=== PATIENT | male | born 1965 | race Caucasian/White ===

== ENCOUNTER 2022-08-06 15:26 | Emergency (ER) | payer OTHER, SELFPAY ==
[2022-08-06] VITALS (11 sets, daily range): BP systolic 119–141; BP diastolic 82–96; PULSE 91–115; RESP 20; TEMP 35.1; O2SAT 95–98; BMI 39.7
--- NOTE | 2022-08-06 16:00 | CRLHL7_ITS ---
For Patients: As a result of the Cures Act, medical imaging exams and procedure reports are released immediately into your electronic medical record. You may view this report before your referring provider. If you have questions, please contact your health care provider. INDICATION: Short of breath. TECHNIQUE: Chest 2 views. COMPARISON: None. FINDINGS: Lungs: Diffuse interstitial prominence. No focal consolidation. Pleura: Small bilateral pleural effusions. Heart and Mediastinum: The cardiomediastinal silhouette is normal. The vessels are unremarkable. Bones: Unremarkable. IMPRESSION: Interstitial prominence could be venous congestion. Dictated by Hung Milan MD @ 08/06/2022 5:22:35 PM (Electronically Signed)
--- NOTE | 2022-08-06 16:05 | ED_ITS ---
HPI - SOB/Dyspnea General Chief Complaint: Shortness of Breath/Dyspnea Stated Complaint: Shortness of breath Time Seen by Provider: 08/06/22 15:51 History of Present Illness HPI Narrative: This 57-year-old male comes in from clinic where he reported shortness of breath over the past couple months. He states that it has been getting worse over the course of this time. He had now has difficulty sleeping at night as he says that laying flat makes his dyspnea worse. He also reports significant shortness of breath with and doing activities such as going up a couple flights of stairs. He does not report any chest pain. He has not had fevers or cough. He quit smoking about 25 years ago. He is not taking any medications and is otherwise in good health. He denies having any unilateral limb pain or swelling. He arrives with tachycardia with a heart rate at 115. His respiratory rate is 20 and oximetry at 96% on room air. Related Data Previous Rx's Medication Instructions Recorded furosemide 20 mg tablet (Lasix) 20 mg PO DAILY #20 tabs 08/06/22 furosemide 40 mg tablet 40 mg PO BID #60 tabs 08/06/22 Allergies Allergy/AdvReac Type Severity Reaction Status Date / Time amoxicillin Allergy Mild Rash Verified 08/06/22 15:35 Review of Systems Status of ROS: Reports: 10 or more systems reviewed and unremarkable except as noted in History and below Narrative: Constitutional: No fevers, no weight gain or loss. Eyes: No discharge. No vision changes. HENT: No congestion, no sore throat, no ear pain. Cardiovascular: No chest pain, no palpitations. Respiratory: No wheezes, no cough. Shortness of breath with exertion and orthopnea. Gastrointestinal: No abdominal pain, no vomiting, no diarrhea. Genitourinary: No dysuria, no hematuria. Musculoskeletal: Normal range of motion. Skin: No rashes, no pruritis. Neurological: No dizziness, weakness, sensory change, speech change. Endo/Heme/Allergies: No bruising or bleeding. No polydipsia. Pysch: no suicidality, no anxiety, no insomnia. All other systems reviewed and are negative. PFS PFS Social History Smoking Status: Former smoker Do you use any of these nicotine containing products: None Second hand tobacco smoke exposure: No How often do you have a drink containing alcohol: monthly or less AUDIT-C Alcohol total score: 1 Non-prescribed substance use: denies use service: No Exam Narrative: Exam Narrative: Constitutional: Well-developed, well-nourished, no acute distress. HEENT: Normocephalic, atraumatic. Neck: Normal range of motion. Nontender. Supple. Heart: Regular. No murmurs. Tachycardia, rate 115 beats per minute. Intact distal pulses. Lungs: Clear to auscultation. No chest discomfort. No wheezes, rhonchi, or rales. Abdomen: Normal bowel sounds. Nontender. No rebound tenderness. Genitalia: Deferred. Back: No midline tenderness. Normal range of motion. Extremities: Normal range of motion. No injury. No pedal edema. Skin: Intact. No rash. Warm. No erythema or pallor. Neurologic: No altered sensation. No weakness. Alert and oriented. Psychiatric: No suicidality. No anxiety or depression. No insomnia. Nursing notes and vitals signs are reviewed. Const: Vital Signs, click to edit/add: Vital Signs - 24 hr 08/06/22 15:32 08/06/22 16:56 08/06/22 17:00 Temperature 95.1 F L Pulse Rate 106 H 94 Pulse Rate [Pulse Oximeter] 115 H Respiratory Rate 20 Blood Pressure Blood Pressure [Ri ght Upper Arm] 141/96 H Pulse Oximetry 96 95 95 Oxygen Delivery Me thod Room Air 08/06/22 17:01 08/06/22 17:15 08/06/22 17:30 Temperature Pulse Rate 98 94 93 Pulse Rate [Pulse Oximeter] Respiratory Rate Blood Pressure 127/82 Blood Pressure [Ri ght Upper Arm] Pulse Oximetry 97 96 97 Oxygen Delivery Me thod 08/06/22 17:31 Temperature Pulse Rate 97 Pulse Rate [Pulse Oximeter] Respiratory Rate Blood Pressure 119/82 Blood Pressure [Ri ght Upper Arm] Pulse Oximetry 97 Oxygen Delivery Me thod Course Vital Signs Vital signs: Initial Vital Signs Temperature 95.1 F L 08/06/22 15:32 Temperature Source Temporal Artery Scan 08/06/22 15:32 Pulse Rate 115 H 08/06/22 15:32 Pulse Strength 3+ Normal 08/06/22 15:32 Respiratory Rate 20 08/06/22 15:32 Blood Pressure 141/96 H 08/06/22 15:32 Blood Pressure Mean 111 08/06/22 15:32 Blood Pressure Position Sitting 08/06/22 15:32 Pulse Oximetry 96 08/06/22 15:32 Oxygen Delivery Method 08/06/22 15:32 Vital Signs Temperature 95.1 F L 08/06/22 15:32 Pulse Rate 115 H 08/06/22 15:32 Respiratory Rate 20 08/06/22 15:32 Blood Pressure 141/96 H 08/06/22 15:32 Pulse Oximetry 96 08/06/22 15:32 Oxygen Delivery Method 08/06/22 15:32 Temperature 95.1 F L 08/06/22 15:32 Pulse Rate 97 08/06/22 17:31 Respiratory Rate 20 08/06/22 15:32 Blood Pressure 119/82 08/06/22 17:31 Pulse Oximetry 97 08/06/22 17:31 Oxygen Delivery Method 08/06/22 15:32 MDM - SOB/Dyspnea MDM Narrative Medical decision making narrative: This patient comes in reporting orthopnea and dyspnea on exertion. This is been occurring and worsening over the past couple months. His EKG shows tachycardia initially. His heart rate normalized on the monitor after resting in the ER. He is maintaining sufficient oximetry. An IV was established and labs were drawn. Labs returned with reassuring findings. His white count is normal. His D-dimer is normal and troponin is normal. His B type natriuretic peptide is elevated. There are findings on chest x-ray to suggest venous congestion also. This would fit with his complained of orthopnea and dyspnea on exertion. He does not have any notable pedal edema but apparently is having some pulmonary edema. The patient is okay to return home. He is encouraged to follow-up with a primary physician. He states that he does not have a doctor that he sees regularly. A prescription for Lasix 20 mg is written for him. Lab Data Labs: Lab Results 08/06/22 08/06/22 08/06/22 Range/Units 16:01 16:10 16:10 WBC 7.15 (4.50-11.00) K/uL RBC 5.17 (4.30-5.90) m/uL Hgb 15.5 (13.5-17.5) gm/dL Hct 46.0 (37.0-53.0) % MCV 89 (80-100) fL MCH 30 (26-34) pg MCHC 34 (32-36) gm/dL RDW Coeff of Marc 12.6 (11.5-15.5) % Plt Count 238 (140-440) K/uL Neut % (Auto) 50.8 (42.0-72.0) % Lymph % (Auto) 33.6 (20-44) % [place] % (Auto) 11.2 H (0.0-11.0) % Eos % (Auto) 3.5 (0.0-7.0) % Baso % (Auto) 0.6 (0.0-3.0) % Neut # (Auto) 3.64 (1.7-7.0) K/uL Lymph # (Auto) 2.40 (0.90-2.90) K/uL [place] # (Auto) 0.80 (0.00-0.90) K/UL Eos # (Auto) 0.25 (0.00-0.50) K/uL Baso # (Auto) 0.04 (0.00-0.30) K/uL Abs Immat Gran (auto) 0.02 (0.00-0.30) K/uL Imm/Tot Granulo (auto) 0.3 % D-Dimer Quant (PE/DVT) (0.00-0.50) ug/ml Sodium 140 (135-149) mmol/L Potassium 4.2 (3.6-5.1) mmol/L Chloride 108 (96-114) mmol/L Carbon Dioxide 24 (20-32) mmol/L BUN 15 (7-30) mg/dL Creatinine 1.0 (0.5-1.5) mg/dL Estimated Creat Clear 84.71 Estimated GFR 87 ml/min Glucose 101 (60-115) mg/dL Calcium 9.4 (8.4-10.6) mg/dL C-Reactive Protein (0.5-1.0) mg/dL NT-Pro-B Natriuret Pep (0-125) PG/mL TSH (0.270-4.20) uIU/mL SARS-CoV-2 (PCR) Negative SARS-CoV-2 (Negative) Influenza Type A (PCR) Negative PCR FLU A (Negative) Influenza Type B (PCR) Negative PCR FLU B (Negative) POC Troponin I (0.01-0.04) ng/ml 08/06/22 08/06/22 08/06/22 Range/Units 16:10 16:10 16:10 WBC (4.50-11.00) K/uL RBC (4.30-5.90) m/uL Hgb (13.5-17.5) gm/dL Hct (37.0-53.0) % MCV (80-100) fL MCH (26-34) pg MCHC (32-36) gm/dL RDW Coeff of Marc (11.5-15.5) % Plt Count (140-440) K/uL Neut % (Auto) (42.0-72.0) % Lymph % (Auto) (20-44) % [place] % (Auto) (0.0-11.0) % Eos % (Auto) (0.0-7.0) % Baso % (Auto) (0.0-3.0) % Neut # (Auto) (1.7-7.0) K/uL Lymph # (Auto) (0.90-2.90) K/uL [place] # (Auto) (0.00-0.90) K/UL Eos # (Auto) (0.00-0.50) K/uL Baso # (Auto) (0.00-0.30) K/uL Abs Immat Gran (auto) (0.00-0.30) K/uL Imm/Tot Granulo (auto) % D-Dimer Quant (PE/DVT) 0.47 (0.00-0.50) ug/ml Sodium (135-149) mmol/L Potassium (3.6-5.1) mmol/L Chloride (96-114) mmol/L Carbon Dioxide (20-32) mmol/L BUN (7-30) mg/dL Creatinine (0.5-1.5) mg/dL Estimated Creat Clear Estimated GFR ml/min Glucose (60-115) mg/dL Calcium (8.4-10.6) mg/dL C-Reactive Protein 0.6 (0.5-1.0) mg/dL NT-Pro-B Natriuret Pep 962 H (0-125) PG/mL TSH 2.590 (0.270-4.20) uIU/mL SARS-CoV-2 (PCR) (Negative) Influenza Type A (PCR) (Negative) Influenza Type B (PCR) (Negative) POC Troponin I (0.01-0.04) ng/ml 08/06/22 Range/Units 16:10 WBC (4.50-11.00) K/uL RBC (4.30-5.90) m/uL Hgb (13.5-17.5) gm/dL Hct (37.0-53.0) % MCV (80-100) fL MCH (26-34) pg MCHC (32-36) gm/dL RDW Coeff of Marc (11.5-15.5) % Plt Count (140-440) K/uL Neut % (Auto) (42.0-72.0) % Lymph % (Auto) (20-44) % [place] % (Auto) (0.0-11.0) % Eos % (Auto) (0.0-7.0) % Baso % (Auto) (0.0-3.0) % Neut # (Auto) (1.7-7.0) K/uL Lymph # (Auto) (0.90-2.90) K/uL [place] # (Auto) (0.00-0.90) K/UL Eos # (Auto) (0.00-0.50) K/uL Baso # (Auto) (0.00-0.30) K/uL Abs Immat Gran (auto) (0.00-0.30) K/uL Imm/Tot Granulo (auto) % D-Dimer Quant (PE/DVT) (0.00-0.50) ug/ml Sodium (135-149) mmol/L Potassium (3.6-5.1) mmol/L Chloride (96-114) mmol/L Carbon Dioxide (20-32) mmol/L BUN (7-30) mg/dL Creatinine (0.5-1.5) mg/dL Estimated Creat Clear Estimated GFR ml/min Glucose (60-115) mg/dL Calcium (8.4-10.6) mg/dL C-Reactive Protein (0.5-1.0) mg/dL NT-Pro-B Natriuret Pep (0-125) PG/mL TSH (0.270-4.20) uIU/mL SARS-CoV-2 (PCR) (Negative) Influenza Type A (PCR) (Negative) Influenza Type B (PCR) (Negative) POC Troponin I 0.02 (0.01-0.04) ng/ml Imaging Data Chest x-ray: Radiologist's impression: Interstitial prominence could be venous congestion. ECG Data Attestation: I personally reviewed and interpreted this ECG as follows: Interpretation: Sinus tachycardia, rate 114 beats per minute. There are no specific ST or T- wave abnormalities. Discharge Plan Discharge Clinical Impression: Congestive heart failure Patient Disposition: Home, Self-Care Condition: Unchanged Additional Instructions: Take medications as needed and indicated. Follow up with MD for ongoing management. Call [phone] for appointment. Or return if worsening. Prescriptions: New furosemide 40 mg tablet 40 mg PO BID Qty: 60 2RF furosemide [Lasix] 20 mg tablet 20 mg PO DAILY Qty: 20 2RF Follow Up/Referrals: Provider,Not a Local [Primary Care Provider] - Stand Alone Forms: [employer] Info Instructions
[2022-08-06 16:27] LABS: Basophils Absolute Auto 0.04 K/uL (0.00-0.30); Basophils Percent Auto 0.6 % (0.0-3.0); Eosinophils Absolute Auto 0.25 K/uL (0.00-0.50); Eosinophils Percent Auto 3.5 % (0.0-7.0); Hemoglobin* 15.5 gm/dL (13.5-17.5); Immature Granulocytes Abs Auto 0.02 K/uL (0.00-0.30); Immature Granulocytes Pct Auto 0.3 %; Lymphocytes Percent Auto 33.6 % (20-44); Mean Corpuscular HGB Conc 34 gm/dL (32-36); Mean Corpuscular Hemoglobin 30 pg (26-34); Mean Corpuscular Volume 89 fL (80-100); Monocytes Percent Auto 11.2 % (0.0-11.0); Neutrophils Absolute Auto 3.64 K/uL (1.7-7.0); Neutrophils Percent Auto 50.8 % (42.0-72.0); Platelet Count* 238 K/uL (140-440); RDW Coefficient of Variation % 12.6 % (11.5-15.5); Red Blood Count 5.17 m/uL (4.30-5.90); White Blood Count* 7.15 K/uL (4.50-11.00)
[2022-08-06 16:33] LABS: Slide Review Reflex No
[2022-08-06 16:40] LABS: Chloride* 108 mmol/L (96-114); Potassium* 4.2 mmol/L (3.6-5.1); Sodium* 140 mmol/L (135-149)
[2022-08-06 16:43] LABS: Blood Urea Nitrogen* 15 mg/dL (7-30); Carbon Dioxide* 24 mmol/L (20-32); Est. Creatinine Clearance* 84.71; Estimated Glomerular Filt Rate 87 ml/min; Glucose* 101 mg/dL (60-115)
[2022-08-06 16:44] LABS: Calcium* 9.4 mg/dL (8.4-10.6); D Dimer Quantitative* 0.47 ug/ml (0.00-0.50)
[2022-08-06 16:45] LABS: Troponin, Point-of-Care* 0.02 ng/ml (0.01-0.04)
[2022-08-06 16:56] LABS: C Reactive Protein* 0.6 mg/dL (0.5-1.0); NT Pro B Type NatriureticPept* 962 PG/mL (0-125)
[2022-08-06 17:04] LABS: PCR FLU A Negative PCR FLU A (Negative); PCR FLU B Negative PCR FLU B (Negative)
[2022-08-06 17:16] LABS: SARS PCR* Negative SARS-CoV-2 (Negative)
== END 2022-08-06 18:25 | disposition home or self-care (01) ==
PROVIDERS: Emergency Provider Emergency Medicine Emergency Medical Services
DX: I50.9 Heart failure, unspecified (principal)
CPT/HCPCS: 36415; 71046; 80048; 83880; 84443; 85025; 85379; 86140; 87631; 93005; 99285